=== PATIENT | male | born 1980 | race Caucasian/White ===

== ENCOUNTER 2018-11-19 11:35 | Emergency (ER) | payer OTHER ==
[2018-11-19 12:59] VITALS: BP 127/73
--- NOTE | 2018-11-19 13:17 | UC ---
Respiratory Complaint HPI - HPI Summary HPI Summary: Patient presents to urgent care reporting some to 8 days progressive cough, wheeze, congestion. Patient states adamantly he's had a headache. Patient states sinus congestion postnasal drip. Patient has been using his albuterol MDI intermittently with little improvement. Patient did take a dose of prednisone yesterday when again today that was left over from his girlfriend. Unknown how many milligrams. Patient states for the last 3 days his cough has become thicker and is green color. He states he feels fatigued and rundown. Patient states he feels like is coughing gets worse in the nighttime. No over- the-counter cough medication taken. Patient does have a history of asthma. Patient smokes one pack of cigarettes per day. No chest pain. No nausea vomiting. Patient's medications reviewed this visit. - History of Current Complaint Chief Complaint: UCRespiratory Stated Complaint: COUGH,CONGESTION Time Seen by Provider: 11/19/18 13:08 Onset/Duration: Gradual Onset Severity Initially: Moderate Severity Currently: Mild Pain Intensity: 0 - Allergies/Home Medications Allergies/Adverse Reactions: Allergies Allergy/AdvReac Type Severity Reaction Status Date / Time erythromycin base Allergy Unknown Verified 11/19/18 13:00 Reaction Details Penicillins Allergy Unknown Verified 11/19/18 13:00 Reaction Details Home Medications: Home Medications Amoxicillin 2 tab PO ONCE 11/19/18 [History Confirmed 11/19/18] predniSONE [Deltasone 20 MG TAB] 1 tab PO ONCE 11/19/18 [History Confirmed 11/19] PMH/Surg Hx/FS Hx/Imm Hx Previously Healthy: Yes Respiratory History: Asthma - Surgical History Surgical History: Yes Surgery Procedure, Year, and Place: right leg surgery - Family History Known Family History: Positive: Non-Contributory - Social History 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 EOM intact and full ENT: Hearing grossly normal TM x 2 clear, sinus congestion, PND, mmoist, uvula midline, no exudate, no erythema Neck: Positive: Supple Respiratory: Positive: coarse cough, scattered wheeze, rhonchi bilateral bases, no retractions Cardiovascular: RRR nl s1, s2 no m/r CBT <2 sec abd soft + BS nt/nd no guarding, no distension Musculoskeletal Exam: MARTINI x 4 without difficulty Strength Intact, ROM Intact Neurological: Positive: Alert, + sensation throughout Psychological: Positive: Normal Response To examiner Skin: Positive: no rash, no ecchymosis Triage Information Reviewed: Yes Vital Signs: Initial Vital Signs Temp 98.5 F 11/19/18 12:53 Pulse 92 11/19/18 12:53 Resp 16 11/19/18 12:53 BP 127/73 11/19/18 12:53 Pulse Ox 98 11/19/18 12:53 Diagnostics - Radiology No standard instances Radiology Interpretation Completed By: Radiologist - Patient Name: EDITH VALDEZ Medical Record#: [id number] Ordering Physician: Cris Flores MD Acct.#: [id number] : 1980 Age: 38 Sex: M Location: [facility] Exam Date: 11/19/18 1323 ADM Status: REG ER Order Information: CHEST PA & LAT 2 VWS Accession Number: [id number] CPT: 43465 INDICATION: Several days wheezing. Productive cough. History of asthma. COMPARISON: February 01, 2013 TECHNIQUE: Dual energy PA and lateral views of the chest were obtained. REPORT: Elevated lung volumes. No focal pulmonary lesion, compelling alveolar consolidation, pleural effusion, pneumothorax. The heart, pulmonary vasculature, and mediastinal contours are unremarkable. IMPRESSION: #. Stigmata of obstructive lung disease. #. No evidence for pneumonia. <Electronically signed by Romain Gordon MD in OV> [id number] Dictated By: Romain Gordon MD Dictated Date/Time: 11/19/18 1336 Transcribed Date/Time: 11/19/18 1336 Copy to: CC:Daniel PRINCE; Cris Flores MD Imaging - [facility] - [facility] [id number] [place] [id number] ph ([phone]) ph ([phone]) ph ([phone]) This report is only to be considered final once signed by the Provider(s) as displayed in the "< Electronically Signed by >" field (s). Absence of a signature indicates the report is in a draft status and still needs to be finalized. In the event this document was created by someone other than the signing Provider, the individual initiating the document will be listed in the "Entered by:" or "Dictated by:" meneses. Re-Evaluation - Re-Evaluation First Eval Change: Improved - wheezing improved not resolved reviewed CXR will Rx doxy, pred - expressed to pt must complete taper, mdi secretion precaution return precaution Respiratory Course/Dx - Course Course Of Treatment: Patient presents to urgent care reporting progressive congestion in his head and his chest. Patient productive cough with green sputum. Patient without fevers or chills. Patient states it seems worse at night. Patient has been ambulating using his MDI without relief. Patient states he also took 1 dose of prednisone yesterday and today but does not milligrams. Patient with a history of asthma never been intubated. Patient does smoke one pack of cigarettes per day. On exam vital signs are stable. Patient does have coarse cough scattered wheezing and rhonchi at the bases. Patient also with inflamed turbinates. We' ll do a chest x-ray give a DuoNeb and reassessed. Anticipate patient will be receiving antibiotics, MDI, and prednisone. With a taper. Patient states he will only use a Ventolin inhaler because the other "don't work." - Differential Dx/Diagnosis Provider Diagnosis: Acute bronchitis Discharge ED - Sign-Out/Discharge Documenting (check all that apply): Patient Departure All imaging exams completed and their final reports reviewed: Yes - Discharge Plan Condition: Stable Disposition: HOME Prescriptions: Albuterol HFA INHALER* [Ventolin HFA Inhaler*] 2 puff INH Q4H PRN #1 mdi PRN Reason: wheeze DOXYcycline CAP(*) [DOXYcycline 100MG CAP(*)] 100 mg PO BID #20 cap predniSONE TAB* [Deltasone 20 MG TAB*] 20 mg PO DAILY #13 tab Patient Education Materials: Acute Bronchitis (ED) Referrals: Daniel Childs PA [Primary Care Provider] - Additional Instructions: - Take antibiotics and prednisone exactly as prescribed until gone -Use your albuterol puffer - 2 puffs ever 4-6 hours for the next 3 days - then as needed -Stay well hydrated - avoid excess caffeine and all alcohol - eat regular, healthy meals - work to decrease cigarette smoke - okay to take over the counter cough and cold medications -Contact your doctor to arrange a follow-up appointment this week. Call your doctor, return here or go to the emergency department with any questions or concerns - Billing Disposition and Condition Condition: STABLE Disposition: Home
[2018-11-19] MEDS ORDERED: Albuterol/Ipratropium NEB.SOL* Albuterol 2.5 MG/Ipratropium 0.5 MG 3 ML INH ONE (13:23)
== END 2018-11-19 14:06 | disposition home or self-care (01) ==
LOC: UCCORT 11:35
DX: J20.9 Acute bronchitis, unspecified (principal); Z88.0 Allergy status to penicillin; Z88.1 Allergy status to other antibiotic agents; F17.210 Nicotine dependence, cigarettes, uncomplicated
CPT/HCPCS: 71046; 99202; A9270-GY; G0463

== ENCOUNTER 2018-12-15 15:39 | Emergency (ER) | payer OTHER ==
[2018-12-15 15:52] VITALS: BP 124/85
--- NOTE | 2018-12-15 16:35 | UC ---
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 Having difficulty breathing with a cough and chest congestion. Had cold chills last night. " -he reports he was here a few weeks ago. he has been to [place] 3 x over the course of the apst couple of months and relates illness to something in [place]. History is confusing and somehwat incosietnt. He was given doxy, alb and prednisone taper. chart review 11/16 done. CXR - no pneumonia but + COPD> still smoeks 1 PPD. had self medicated w/ amox and his GF's high dose pred prior to last visit. states he got completely better after the doxy adn pred ( did get sunburn though). sx restarted mildly 6 d ago and worsened 12/12-12/13 overnight. + asthma hx. denies ever being prescribed daily inhaler for maintenace and says he only has used albuterol. + body aches, fevers/chills. no sinus pain. no ear pain. + ST. denies ELY. no rash. - History of Current Complaint Chief Complaint: UCGeneralIllness Stated Complaint: SORE THROAT/ COUGH/CHEST CONGESTION/FEVER Time Seen by Provider: 12/15/18 16:15 Pain Intensity: 0 - Allergies/Home Medications Allergies/Adverse Reactions: Allergies Allergy/AdvReac Type Severity Reaction Status Date / Time erythromycin base Allergy Unknown Verified 11/19/18 13:00 Reaction Details Penicillins Allergy Unknown Verified 11/19/18 13:00 Reaction Details PMH/Surg Hx/FS Hx/Imm Hx Previously Healthy: Yes Respiratory History: Asthma - Surgical History Surgical History: Yes Surgery Procedure, Year, and Place: right leg surgery - Family History Known Family History: Positive: Non-Contributory - Social History Alcohol Use: Daily Substance Use Type: None Smoking Status (MU): Heavy Every Day Tobacco Smoker Type: Cigarettes Amount Used/How Often: 1 ppd Length of Time of Smoking/Using Tobacco: 15-20 years Review of Systems All Other Systems Reviewed And Are Negative: Yes Constitutional: Positive: Fever, Chills, Fatigue Skin: Positive: Negative. Negative: Rash Eyes: Negative: Drainage, Eye Redness ENT: Positive: Sore Throat, Nasal Discharge. Negative: Ear Ache Respiratory: Positive: Cough. Negative: Shortness Of Breath Cardiovascular: Positive: Negative. Negative: Palpitations, Chest Pain Gastrointestinal: Positive: Negative. Negative: Vomiting, Diarrhea, Nausea Genitourinary: Positive: Negative. Negative: Dysuria Motor: Positive: Negative Neurovascular: Positive: Negative Musculoskeletal: Positive: Myalgia Neurological: Positive: Negative. Negative: Weakness, Paresthesia Psychological: Positive: Negative Is Patient Immunocompromised?: No Physical Exam Triage Information Reviewed: Yes Appearance: Ill-Appearing - mild-mod. poor, vague historian w/ poor attention to details. Vital Signs: Initial Vital Signs Temp 101.1 F 12/15/18 15:48 Pulse 102 12/15/18 15:48 Resp 24 12/15/18 15:48 BP 124/85 12/15/18 15:48 Pulse Ox 94 12/15/18 15:48 Eye Exam: Normal Eyes: Positive: Conjunctiva Clear ENT: Positive: Pharyngeal erythema, TMs normal, Uvula midline. Negative: Nasal drainage, Tonsillar swelling, Tonsillar exudate, Hoarse voice, Sinus tenderness Neck exam: Normal Neck: Positive: Supple, Nontender, No Lymphadenopathy Respiratory: Positive: No respiratory distress, No accessory muscle use, Decreased breath sounds, Rhonchi - right ? left, Wheezing. Negative: Crackles, Stridor Cardiovascular Exam: Normal Cardiovascular: Positive: RRR Abdominal Exam: Normal Abdomen Description: Positive: Soft Musculoskeletal Exam: Normal Neurological Exam: Normal Psychological Exam: Normal Skin Exam: Normal Skin: Negative: Rashes Respiratory Course/Dx - Course Course Of Treatment: CXR-IMPRESSION: No radiographic evidence of acute cardiopulmonary disease. -My impression w/ ? RML pneumonia alb neb x 1 - improevd breath sounds but still w/ rt rhonchi > left which makes me consider clinical pneumonia -AVERY 600mgs x 1 now -Rapid flu - neg -reporst allergies to PCN (unknown rxn as child) and erythromycin. will treat again w/ doxy x 10 d and pred taper. recommend keep skin covered and suncreen even on cloudy days bc high risk sunburn w/ doxy. could consider levaquin as well -stressed improatnce of dc smoking and appearance of COPD changes per last CXR report. he verbalized understanding. -denies need for another alb inhaler - Differential Dx/Diagnosis Differential Diagnosis/HQI/PQRI: Bronchitis, Influenza, Lower Resp Infection Provider Diagnosis: Bronchitis, Tobacco abuse Discharge ED - Sign-Out/Discharge Documenting (check all that apply): Patient Departure All imaging exams completed and their final reports reviewed: Yes - Discharge Plan Condition: Stable Disposition: HOME Prescriptions: Doxycycline Hyclate 100 mg PO BID #20 tablet methylPREDNISolone [Medrol Dosepak 4 MG*] 4 mg PO DAILY #1 sabas Patient Education Materials: Acute Bronchitis (ED) Referrals: [facility] [Outside] Additional Instructions: -It is recommended that you take a probiotic daily while you are on antibiotics. A few common brands that you can buy over the counter are colon health, align and florastor. These can help prevent a colon infection called c diff that can be associated with antibiotic use. -It is very improatnt that you call a primary care to establish and evaluate your lung disease further. You should be seen in follow up this week. You should go to the ER if your symptoms worsen or persist. -the potential side effects of prednisone include but are not limited to increased energy/decreased sleep, stomach upset, irritability, hunger, elevated blood sugars and blood pressures, problems with your adrenal glands and cut off of the blood supply going to your hip. The latter symptoms are more typical of vermin exterminator or frequent use of steroids. - Billing Disposition and Condition Condition: STABLE Disposition: Home
[2018-12-15] MEDS ORDERED: Albuterol 2.5 MG/3 ML NEB.SOL* (0.083%) INH ONE (16:46)
[2018-12-15] MEDS ORDERED: Ibuprofen TAB* 600 MG PO ONE (16:46)
[2018-12-15 17:03] LABS: Influenza A Molecular NEGATIVE (Negative); Influenza B Molecular NEGATIVE (Negative)
== END 2018-12-15 17:23 | disposition home or self-care (01) ==
LOC: UCCORT 15:39
DX: J45.909 Unspecified asthma, uncomplicated (principal); F17.210 Nicotine dependence, cigarettes, uncomplicated; J02.9 Acute pharyngitis, unspecified; R09.89 Other specified symptoms and signs involving the circulatory and respiratory systems; Z88.0 Allergy status to penicillin; Z88.1 Allergy status to other antibiotic agents
CPT/HCPCS: 71046; 99212; A9270-GY; G0463